=== PATIENT | female | born 1965 | race Caucasian/White ===

== ENCOUNTER 2024-03-29 13:40 | Observation (INO) ==
[2024-03-29] MEDS: Ondansetron 4 mg VIAL 2 MG/ML 2 ml VIAL IV ONE ×2 (14:24→16:21)
[2024-03-29] MEDS: NS 0.9% 1000 ml BAG 1,000 ML IV ONE ×2 (14:28→16:21)
[2024-03-29] MEDS: Morphine 4 MG/ML VIAL (1 ml) IV ONE (14:29)
[2024-03-29 14:31] LABS: ABS Basophils 0.1 10^3/uL (0.0-0.1); ABS Eosinophils 0.1 10^3/uL (0.0-0.5); ABS Lymphocytes 1.4 10^3/uL (1.0-4.8); ABS Monocytes 0.3 10^3/uL (0.0-0.9); ABS Neutrophils 9.9 10^3/uL (1.5-7.6); ABS Nucleated RBC 0.01 10^3/ul; Eosinophil % 0.6 %; Hematocrit 42.3 % (35-45); Hemoglobin 14.1 g/dL (11.5-14.3); Lymphocyte % 11.5 %; Mean Corpuscular Hgb Conc 33.5 g/dL (31-36); Mean Corpuscular Volume 89.7 fL (80-97); Mean Platelet Volume 8.1 fL (7.5-11.2); Nucleated Red Blood Cells % 0.1 %/100WBC (0.0-0.8); Platelet Count 303 10^3/uL (150-450); Red Blood Count 4.71 10^6/uL (3.63-4.92); Red Cell Distribution Width 13.4 % (12-17); White Blood Count 11.8 10^3/uL (3.8-11.8)
[2024-03-29 14:41] LABS: Urine Appearance Extra Turbid; Urine Bilirubin Negative (Negative); Urine Blood Negative (Negative); Urine Color Yellow; Urine Glucose Negative (Negative); Urine Ketones 2+ (Negative); Urine Nitrite Negative (Negative); Urine Protein Trace (Negative); Urine Specific Gravity 1.026 (1.002-1.030); Urine Urobilinogen Negative (Negative); Urine pH 7.5 (5.0-8.0)
[2024-03-29] MEDS: HYDROmorphone 1 MG/1 ML SYRINGE IV SLOW PU ONE (14:54)
[2024-03-29 15:05] LABS: ALT 20 U/L (7-52); AST 21 U/L (13-39); Albumin/Globulin Ratio 1.8 (1-3); Alkaline Phosphatase 62 U/L (35-149); Anion Gap 6 mmol/L (2-16); Blood Urea Nitrogen 17 mg/dL (6-24); CO2 Carbon Dioxide 24 mmol/L (22-32); Chloride 108 mmol/L (101-111); Creatinine, Serum 0.68 mg/dL (0.51-0.95); Globulin 2.2 g/dL (2-4); Glucose 124 mg/dL (70-100); Magnesium 1.9 mg/dL (1.9-2.7); Potassium 3.9 mmol/L (3.5-5.0); Sodium 138 mmol/L (135-145); Total Bilirubin 0.6 mg/dL (0.2-1.0); Total Protein 6.2 g/dL (6.4-8.9); eGFR CKD-EPI 102.2 (>60)
[2024-03-29 15:07] LABS: HCG Pregnancy 2.73 mIU/mL
[2024-03-29] MEDS: Iohexol 350 (CONTRAST) 500 ML MDV IV ONE (15:50)
[2024-03-29] MEDS ORDERED: Senna TAB 8.6 mg TAB PO PRN (17:37)
[2024-03-29] MEDS ORDERED: Polyethylene Glycol 3350 17 GM PACKET PO PRN (17:37)
[2024-03-29] MEDS ORDERED: Magnesium Hydroxide LIQ 30 ML UDC PO PRN (17:37)
[2024-03-29] MEDS ORDERED: Prochlorperazine 5 mg/ml 2 ml VIAL (10 mg) IV PRN (17:37)
[2024-03-29] MEDS: Prochlorperazine 5 mg/ml 2 ml VIAL (10 mg) IV ONE (18:18)
[2024-03-29] MEDS: HYDROmorphone 0.5 MG/0.5 ML SYRINGE IV SLOW PU ONE (18:18)
[2024-03-29 18:21] LABS: C Reactive Protein < 1.00 mg/L (<8.01)
[2024-03-29] MEDS: Lactated Ringers 1000 ml BAG 1,000 ML IV SCH (20:22)
[2024-03-29] MEDS: HYDROmorphone 1 MG/1 ML SYRINGE IV SLOW PU PRN (21:15)
[2024-03-29] MEDS: Ondansetron 4 mg VIAL 2 MG/ML 2 ml VIAL IV PRN (21:18)
[2024-03-29] MEDS: Magnesium Hydroxide LIQ 30 ML UDC PO SCH (21:37)
[2024-03-30 05:46] VITALS: BP 91/62
[2024-03-30 06:19] LABS: ABS Eosinophils 0.1 10^3/uL (0.0-0.5); ABS Lymphocytes 1.6 10^3/uL (1.0-4.8); ABS Monocytes 0.8 10^3/uL (0.0-0.9); Eosinophil % 0.9 %; Hematocrit 36.4 % (35-45); Hemoglobin 12.1 g/dL (11.5-14.3); Mean Corpuscular Hemoglobin 30.2 pg (27-33); Mean Corpuscular Hgb Conc 33.3 g/dL (31-36); Mean Corpuscular Volume 90.5 fL (80-97); Mean Platelet Volume 8.4 fL (7.5-11.2); Platelet Count 260 10^3/uL (150-450); Red Blood Count 4.02 10^6/uL (3.63-4.92); Red Cell Distribution Width 13.1 % (12-17); White Blood Count 7.5 10^3/uL (3.8-11.8)
[2024-03-30 07:04] LABS: Calcium 8.5 mg/dL (8.6-10.3); Creatinine, Serum 0.59 mg/dL (0.51-0.95); Magnesium 2.1 mg/dL (1.9-2.7); eGFR CKD-EPI 105.7 (>60)
== END 2024-03-30 11:40 | disposition home or self-care (01) ==
LOC: EDHOLD 13:40 → ED 13:40 → MED 20:29
PROVIDERS: ADMIT Student in an Organized Health Care Education/Training Program; ATTEND Student in an Organized Health Care Education/Training Program